=== PATIENT | female | born 1950 | race Caucasian/White ===

== ENCOUNTER → 2018-10-19 | Outpatient (CLI) | payer OTHER, MEDICARE | END | disposition home or self-care (01) | LOC: FIMAGING 10:56 | PROVIDERS: ATTEND Internal Medicine | DX: Z12.31 Encounter for screening mammogram for malignant neoplasm of breast (principal) ==

== ENCOUNTER 2018-12-28 05:47 | Observation (INO) | payer OTHER, MEDICARE | END 2018-12-29 13:05 | disposition home or self-care (01) | LOC: F3N 05:47 ==

== ENCOUNTER 2019-01-02 14:17 | Emergency (ER) | payer OTHER, MEDICARE ==
--- NOTE | 2019-01-02 15:32 | EDPHY ---
H & P Time Seen by Provider: 01/02/19 15:00 HPI/ROS: CHIEF COMPLAINT: Fever, chills HISTORY OF PRESENT ILLNESS: The patient is a 68-year-old female status post left knee surgery by Dr. Villarreal on 12/28/2018. She had initial pain after the procedure on Friday but has improved since that time. Last evening she developed fevers and chills. She also reports nonbloody diarrhea. Her chills have persisted today. They measured her temperature at home was 101. She states that is normalized when she has come to the emergency department. She denies any increasing leg pain. No discharge around her knee. The swelling around her knee has improved. She denies any calf pain. No chest pain or shortness of breath. No abdominal pain. REVIEW OF SYSTEMS: 10 systems were reveiwed and are negative with the exception of the elements mentioned in the history of present illness. Past Medical/Surgical History: Includes migraine Past surgical history: Includes knee surgery on 12/28/2018 Social history: Patient does not smoke Smoking Status: Never smoked Physical Exam: Vitals noted. 36.7. Heart rate 108 GENERAL: Well-appearing, in no acute distress, alert. HEENT: Eyes normal to inspection, normal pharynx, no signs of dehydration. NECK: Normal, supple. RESPIRATORY: Clear to auscultation bilaterally, no rales, rhonchi or wheezing. Normal CVS: Regular rate and rhythm, no rubs, murmurs, or gallops. ABDOMEN: Soft, nontender, nondistended, no organomegaly. Benign BACK: Normal to inspection, no CVA tenderness. SKIN: Normal color, no rash, warm, dry. No pallor. EXTREMITIES: Patient's left leg appears to be healing well. The dressing is clean dry and intact. There is mild bruising around the left lateral thigh. No significant knee tenderness to palpation. Mild swelling around the knee. Bilateral: No pedal edema, no calf tenderness, no Homans sign or cords, no joint swelling. NEURO/PSYCH: Alert and oriented, normal mood and affect, normal motor sensory exam. No obvious cranial nerve deficit. Constitutional: Initial Vital Signs Temperature (C) 36.7 C 01/02/19 14:23 Heart Rate 108 H 01/02/19 14:23 Respiratory Rate 18 01/02/19 14:23 Blood Pressure 160/87 H 01/02/19 14:23 O2 Sat (%) 94 01/02/19 14:23 O2 Delivery Mode Room Air Allergies/Adverse Reactions: hydrocodone [From Vicodin] Allergy (Verified 12/04/18 16:07) Vomiting Home Medications: Medication Instructions Recorded Acetaminophen/ASA/Caffeine 1 each PO BID PRN 12/02/18 [Excedrin Tablet (*)] Aspirin EC [Aspirin EC 81 mg (*)] 81 mg PO HS PRN 12/02/18 C/E/Zn/Cu/OM3/DHA/EPA/LUT/ZEAX 1 each PO BID 12/02/18 [Preservision Areds 2 Softgel] Calcium Carbonate [Tums 500MG (*)] 500 - 1,000 mg PO TID PRN 12/02/18 Cholecalciferol Vit D3 [Vitamin D3 1,000 units PO DAILY 12/02/18 (*)] Herbals/Supplements -Info Only 1 ea PO DAILY 12/02/18 Loperamide HCl [Imodium 2 mg (*)] 2 mg PO PRN PRN 12/02/18 Naproxen Sodium [Aleve 220 MG (*)] 220 mg PO BID 12/02/18 Ondansetron HCl [Zofran] 4 mg PO Q6H PRN 12/02/18 Promethazine HCl [Phenergan 25mg 25 mg PO Q8H PRN 12/02/18 (*)] SUMAtriptan [Imitrex 50 MG (*)] 50 mg PO Q2H PRN MDD 100mg 12/02/18 Trolamine Salicylate [Aspercreme] 1 kristian TP BID PRN 12/02/18 Medical Decision Making - Diagnostics Imaging Results: Imaging Impressions Chest X-Ray 01/02/19 15:32 Impression: Suspect left basilar atelectasis with clinical correlation to exclude minimal pneumonia. A slight left pleural effusion is suspected. ED Course/Re-evaluation: In the emergency department I discussed possible etiologies with the patient. I answered all her questions. IV was placed. Laboratory studies were obtained. Chest x-ray and EKG were ordered. EKG shows normal sinus rhythm, normal rate, normal axis, normal intervals. There are no ST or T-wave abnormalities. EKG is normal as interpreted by me. Patient's sodium was slightly low at 132. Patient also had a low hematocrit at 28. This was compared with a previous values and is improved. Patient has a normal white count. Patient's lactic acid is normal. Troponin is negative. Chest x-ray: Please refer the dictated report. Suspect left basilar atelectasis with clinical correlation to exclude pneumonia. I discussed the case with Dr. Villarreal is office. They felt this was more likely atelectasis with the other values. They felt comfortable with this diagnosis and did not want antibiotics started at this time. I discussed the laboratories also and x-ray findings by phone. I discussed the findings with the patient. I answered all her questions. She was informed of her low hematocrit and sodium. These will need to be recheck. 1745: At time of discharge patient was doing well. She was afebrile. Vital signs were normal. Clear breath sounds bilaterally. No complaints of chest pain or shortness of breath. Differential Diagnosis: My differential includes but is not limited to bacteremia, sepsis, pneumonia, bronchitis, atelectasis, wound infection, surgical site infection, septic joint - Data Points Laboratory Results: Laboratory Results 01/02/19 15:05 01/02/19 15:05 01/02/19 01/02/19 01/02/19 15:55 15:48 15:05 WBC RBC Hgb Hct MCV MCH MCHC RDW Plt Count MPV Neut % (Auto) Lymph % (Auto) Harnett % (Auto) Eos % (Auto) Baso % (Auto) Nucleat RBC Rel Count Absolute Neuts (auto) Absolute Lymphs (auto) Absolute Monos (auto) Absolute Eos (auto) Absolute Basos (auto) Absolute Nucleated RBC Immature Gran % Seg Neutrophils % Band Neutrophils % Lymphocytes % Monocytes % Eosinophils % Basophils % Metamyelocytes % Myelocytes % Promyelocytes % Blast Cells % Immature Gran # Absolute Seg Neuts Absolute Band Neuts Absolute Lymphocytes Absolute Monocytes Absolute Eosinophils Absolute Basophils Absolute Metamyelocyte Absolute Myelocytes Absolute Promyelocytes Absolute Plasma Cells Nucleated RBCs RBC/WBC/PLT Morphology Absolute Blast Cells Plasma Cells % Platelet Estimate PT INR APTT VBG Lactic Acid 1.5 mmol/L mmol/L (0.7-2.1) Sodium 132 mEq/L L mEq/L (135-145) Potassium 4.2 mEq/L mEq/L (3.5-5.2) Chloride 101 mEq/L mEq/L (97-110) Carbon Dioxide 22 mEq/l mEq/l (22-31) Anion Gap 9 mEq/L mEq/L (6-14) BUN 22 mg/dL mg/dL (7-23) Creatinine 0.9 mg/dL mg/dL (0.6-1.0) Estimated GFR > 60 Glucose 113 mg/dL H mg/dL (70-100) Calcium 8.3 mg/dL L mg/dL (8.5-10.4) Total Bilirubin 1.1 mg/dL mg/dL (0.1-1.4) POC Troponin I 0.01 ng/mL ng/mL (0.00-0.08) 01/02/19 01/02/19 15:05 15:05 WBC 5.62 10^3/uL 10^3/uL (3.80-9.50) RBC 3.04 10^6/uL L 10^6/uL (4.18-5.33) Hgb 9.2 g/dL L g/dL (12.6-16.3) Hct 28.2 % L % (38.0-47.0) MCV 92.8 fL fL (81.5-99.8) MCH 30.3 pg pg (27.9-34.1) MCHC 32.6 g/dL g/dL (32.4-36.7) RDW 13.9 % % (11.5-15.2) Plt Count 257 10^3/uL 10^3/uL (150-400) MPV 9.3 fL fL (8.7-11.7) Neut % (Auto) Not Reported Lymph % (Auto) Not Reported Harnett % (Auto) Not Reported Eos % (Auto) Not Reported Baso % (Auto) Not Reported Nucleat RBC Rel Count Not Reported Absolute Neuts (auto) Not Reported Absolute Lymphs (auto) Not Reported Absolute Monos (auto) Not Reported Absolute Eos (auto) Not Reported Absolute Basos (auto) Not Reported Absolute Nucleated RBC Not Reported Immature Gran % Not Reported Seg Neutrophils % 41.0 % % Band Neutrophils % 43.0 % % Lymphocytes % 7.0 % % Monocytes % 9.0 % % Eosinophils % 0.0 % % Basophils % 0.0 % % Metamyelocytes % 0.0 % % Myelocytes % 0.0 % % Promyelocytes % 0.0 % % Blast Cells % 0.0 % % Immature Gran # Not Reported Absolute Seg Neuts 2.30 10^3/uL 10^3/uL (1.70-6.50) Absolute Band Neuts 2.42 10^3/uL H 10^3/uL (0.00-0.70) Absolute Lymphocytes 0.39 10^3/uL L 10^3/uL (1.00-3.00) Absolute Monocytes 0.51 10^3/uL 10^3/uL (0.30-0.80) Absolute Eosinophils 0.00 10^3/uL L 10^3/uL (0.03-0.40) Absolute Basophils 0.00 10^3/uL L 10^3/uL (0.02-0.10) Absolute Metamyelocyte 0.00 10^3/mL 10^3/mL (0.00-0.00) Absolute Myelocytes 0.00 10^3/mL 10^3/mL (0.00-0.00) Absolute Promyelocytes 0.00 10^3/uL 10^3/uL (0.00-0.00) Absolute Plasma Cells 0.00 10^3/uL 10^3/uL (0.00-0.00) Nucleated RBCs 0 /100 WBC /100 WBC (0-0) RBC/WBC/PLT Morphology NORMAL (NORMAL) Absolute Blast Cells 0.00 10^3/uL 10^3/uL (0.00-0.00) Plasma Cells % 0.0 % % Platelet Estimate ADEQUATE (ADEQ) PT 13.3 SEC SEC (12.0-15.0) INR 1.05 (0.83-1.16) APTT 37.1 SEC SEC (23.0-38.0) VBG Lactic Acid Sodium Potassium Chloride Carbon Dioxide Anion Gap BUN Creatinine Estimated GFR Glucose Calcium Total Bilirubin POC Troponin I Medications Given: Discontinued Medications Acetaminophen (Tylenol) 500 mg PO EDNOW ONE Stop: 01/02/19 17:27 Last Admin: 01/02/19 17:30 Dose: 500 mg Oxycodone HCl (Oxycodone Ir) 5 mg PO EDNOW ONE Stop: 01/02/19 17:26 Last Admin: 01/02/19 17:30 Dose: 5 mg Point of Care Test Results: Chemistry 01/02/19 15:55 POC Troponin I 0.01 ng/mL ng/mL (0.00-0.08) Departure - Departure Disposition: Home, Routine, Self-Care Clinical Impression: Fever Qualifiers: Fever type: unspecified Qualified Code(s): R50.9 - Fever, unspecified Condition: Good Instructions: Fever in Adults (ED) Additional Instructions: Return with increasing chest pain, persistent fever, worsening symptoms or any other concerns. Blood cultures are pending. Use your incentive spirometer at least 5 times daily. You need to have your sodium level and hematocrit rechecked. Call your primary care physician for close follow-up in the next week. Referrals: Jessie Parish MD [Primary Care Provider] - 5-7 days, call for appt.
[2019-01-02 15:45] LABS: PLATELET COUNT 257 10^3/uL (150-400)
[2019-01-02 15:56] LABS: INR 1.05 (0.83-1.16); PROTIME(PATIENT) 13.3 SEC (12.0-15.0)
[2019-01-02 17:18] VITALS: BP 119/70
[2019-01-02] MEDS ORDERED: oxyCODONE IR 5 MG TAB PO ONE (17:25)
[2019-01-02] MEDS ORDERED: ACETAMINOPHEN 500 MG TAB PO ONE (17:26)
== END 2019-01-02 17:50 | disposition home or self-care (01) ==
DX: R50.9 Fever, unspecified (principal)
CPT/HCPCS: 84484-ER